=== PATIENT | female | born 1985 | race Two or more races ===

== ENCOUNTER 2017-10-14 01:55 | Emergency (ER) | payer BC ==
[~2017-10-14] VITALS: Ht 172.7 cm; Wt 102.1 kg
--- NOTE | 2017-10-14 02:25 | NUR ---
PT PRESENTED TO THE ER WITH A C/O VAGINAL BLEEDING. PT STATED THAT SHE WAS HERE WITH DR. CONTRERAS 3-4 DAYS AGO AND WAS TOLD TO F/U WITH FIRE ALARM TECHNICIAN. PT STATED THAT THE APPOINTMENT THAT SHE GOT WAS 2 WEEKS AWAY AND COULD NOT GET IN TO FIRE ALARM TECHNICIAN ANY SOONER. PT CAME BACK TO ER BECAUSE THE VAGINAL BLEEDING WORSENED AND SHE HAD 4 LG CLOTS TODAY. PT IS NOT ON PRE LOTTIE VITAMINS AT THIS TIME THEY MADE HER CONSTIPATED. PT WANTED TO WAIT FOR FIRE ALARM TECHNICIAN TO PRESCIBE THEM TO HER. PT'S PALOR IS WNL, RESP EVEN AND UNLABORED WITH NAD NOTED. PT'S BOYFRIEND IS AT THE BEDSIDE.
--- NOTE | 2017-10-14 02:30 | NUR ---
TONI CALLED FOR PELVIC U/S.
--- NOTE | 2017-10-14 03:00 | NUR ---
US TECH IS AT THE BEDSIDE.
[2017-10-14 03:53] VITALS: BP 138/85
--- NOTE | 2017-10-14 03:54 | NUR ---
Patient discharged to home in stable condition. Written and verbal after care instructions given. Patient verbalizes understanding of instruction. PT REC'D A COPY OF THE LABS. PT AMBULATED OUT WITH A STEADY GAIT. VSS. PT'S BOYFRIEND IS DRIVING PT HOME.
== END 2017-10-14 03:56 | disposition home or self-care (01) ==
LOC: ER 01:56
DX: O03.9 Complete or unspecified spontaneous abortion without complication (principal); F32.9 Major depressive disorder, single episode, unspecified; F41.9 Anxiety disorder, unspecified; I10 Essential (primary) hypertension; F17.200 Nicotine dependence, unspecified, uncomplicated; F10.10 Alcohol abuse, uncomplicated
CPT/HCPCS: 36415; 76856; 84702; 99285; A4606; Z7610